=== PATIENT | female | born 1960 | race Caucasian/White ===

== ENCOUNTER 2019-04-27 10:49 | Day surgery (SDC) | payer OTHER ==
[2019-04-27] MEDS ORDERED: LIDOCAINE 2% (SDV) 5 ML INJ (13:07)
[2019-04-27] MEDS ORDERED: PROPOFOL 60 ML (13:07)
== END 2019-04-27 16:05 | disposition home or self-care (01) ==
LOC: GIL 10:49
DX: Z12.11 Encounter for screening for malignant neoplasm of colon (principal); K64.8 Other hemorrhoids; K57.30 Diverticulosis of large intestine without perforation or abscess without bleeding; D12.2 Benign neoplasm of ascending colon; K21.0 Gastro-esophageal reflux disease with esophagitis; K44.9 Diaphragmatic hernia without obstruction or gangrene; I10 Essential (primary) hypertension
CPT/HCPCS: 43239; 88305; 88312; 88313